=== PATIENT | male | born 1985 | race Caucasian/White ===

== ENCOUNTER 2020-08-14 10:58 | Emergency (ER) | payer OTHER ==
[~2020-08-14] VITALS: Ht 162.6 cm; Wt 68.0 kg
[2020-08-14] MEDS ORDERED: DOXYCYCLINE 10100 MG PO (12:07)
[2020-08-14] MEDS ORDERED: VENTOLIN HFA 1818 GM INH (12:07)
[2020-08-14 12:17] VITALS: BP 135/75
== END 2020-08-14 12:17 | disposition home or self-care (01) ==
LOC: M.ERS 10:58
DX: J18.1 Lobar pneumonia, unspecified organism (principal); Z20.822 Contact with and (suspected) exposure to COVID-19; F17.210 Nicotine dependence, cigarettes, uncomplicated